=== PATIENT | male | born 1980 | race African-American/Black ===

== ENCOUNTER 2017-01-02 21:23 | Emergency (ER) | payer OTHER ==
[~2017-01-02] VITALS: Ht 198.1 cm; Wt 127.1 kg
[2017-01-02 21:31] VITALS: BP 134/77
--- NOTE | 2017-01-03 00:06 | NUR ---
BIB , HIGH BLOOD SUGAR AT HOME 401. , MORE FREQUENT URINATION, BLURRED VISION. BLOOD SUGAR IN TRIAGE IS 449 MED HX: ASTHMA/HTN/DIABETES/HIGH CHOLESTEROL MEDS TAKE AT HOME LISONOPRIL, PRAVASTATIN, GLIMAPRIDE, ALBUTEROL, FISH OIL SUPPLEMENT, VIT D
--- NOTE | 2017-01-03 00:06 | NUR ---
TO ER BED 8
[2017-01-03] MEDS ORDERED: NACL 0.9% 1,000 ML IV ONE (00:10)
--- NOTE | 2017-01-03 00:16 | NUR ---
Patient being evaluated by physician at bedside.
[2017-01-03] MEDS ORDERED: INSULIN HUMAN REGULAR 100 UNITS/ML 10 ML VIAL IVP ONE (01:05)
--- NOTE | 2017-01-03 01:40 | NUR ---
IV removed, catheter intact and site benign. Applied folded 4x4 gauze and tape to stop bleeding.
[2017-01-03 01:42] VITALS: BP 136/72
--- NOTE | 2017-01-03 01:42 | NUR ---
Patient discharged with v/s stable. Written and verbal after care instructions given and explained. Patient verbalized understanding. Ambulatory with steady gait. All questions addressed prior to discharge. Advised to follow up with PMD.
== END 2017-01-03 01:42 | disposition home or self-care (01) ==
LOC: MED 21:23
DX: E11.65 Type 2 diabetes mellitus with hyperglycemia (principal); I10 Essential (primary) hypertension; J45.909 Unspecified asthma, uncomplicated; E78.00 Pure hypercholesterolemia, unspecified; Z79.4 Long term (current) use of insulin
CPT/HCPCS: 36415; 80053; 82948; 85025; 85610; 85730; 96361; 96374; 99284; J1815; J7030

== ENCOUNTER 2017-01-06 18:37 | Emergency (ER) | payer OTHER ==
[~2017-01-06] VITALS: Ht 195.6 cm; Wt 124.3 kg
[2017-01-06 18:58] VITALS: BP 138/76
[2017-01-06 19:27] LABS: BASOPHILS # (AUTO) 0.1 K/uL (0.00-0.22); BASOPHILS % (AUTO) 1.2 % (0.0-2.0); EOSINOPHILS # (AUTO) 0.1 K/uL (0-0.4); EOSINOPHILS % (AUTO) 1.4 % (0.0-4.0); HEMATOCRIT 44.5 % (36-52); HEMOGLOBIN 14.9 g/dL (12.0-18.0); LYMPHOCYTES # (AUTO) 2.4 K/uL (2.0-11.5); LYMPHOCYTES % (AUTO) 24.3 % (20.5-51.1); MEAN CORPUSCULAR HEMOGLOBIN 27 pg (27-31); MEAN CORPUSCULAR HGB CONC 33 g/dL (33-37); MEAN CORPUSCULAR VOLUME 82 fL (80-94); MONOCYTES # (AUTO) 0.6 K/uL (0.8-1.0); MONOCYTES % (AUTO) 6.1 % (1.7-9.3); NEUTROPHILS # (AUTO) 6.7 K/uL (1.8-7.7); PLATELET COUNT (AUTO) 201 K/uL (140-450); RED BLOOD CELL COUNT(AUTO) 5.41 MIL/uL (4.20-6.10); RED CELL DISTRIBUTION WIDTH 11.8 % (11.6-13.7); WHITE BLOOD COUNT (AUTO) 9.9 K/uL (4.8-10.8)
[2017-01-06 19:42] LABS: ALBUMIN 3.9 g/dL (3.4-5.0); ANION GAP 11.5 (8-16); CALCIUM 9.4 mg/dL (8.5-10.1); CREATININE 1.3 mg/dL (0.6-1.3); POTASSIUM 4.5 mmol/L (3.5-5.1); TOTAL BILIRUBIN 0.9 mg/dL (0.0-1.0); TOTAL PROTEIN, SERUM 7.6 g/dL (6.4-8.2)
--- NOTE | 2017-01-06 20:27 | NUR ---
TO ER BED 3
[2017-01-06 20:29] LABS: BLOOD GAS BASE EXCESS 0.4 mmol/L (-2.0-2.0); BLOOD GAS HCO3 24.3 mmol/L; BLOOD GAS PCO2 36.8 mmHg (20-50); BLOOD GAS PH 7.437 (7.35-7.45); BLOOD GAS PO2 76.9 mmHg
[2017-01-06 20:30] LABS: BLOOD GAS O2 SAT% 95.3 % (92.0-98.5)
--- NOTE | 2017-01-06 20:30 | NUR ---
CAME IN WITH C/O HIGH BLOOD SUGAR , 395 MG/DL.
[2017-01-06] MEDS ORDERED: NACL 0.9% 1,000 ML IV ONE (20:40)
--- NOTE | 2017-01-06 20:40 | NUR ---
Patient being evaluated by physician at bedside.
[2017-01-06] MEDS ORDERED: INSULIN HUMAN REGULAR 100 UNITS/ML 10 ML VIAL IVP ONE (20:50)
--- NOTE | 2017-01-06 22:10 | NUR ---
ALL RESULTS BACK AND NOTED BY ERMD AND FOR D/C
[2017-01-06 22:14] VITALS: BP 120/70
--- NOTE | 2017-01-06 22:14 | NUR ---
Patient discharged with v/s stable. Written and verbal after care instructions given and explained. Patient alert, oriented and verbalized understanding of instructions. Ambulatory with steady gait. All questions addressed prior to discharge. ID band removed. Patient advised to follow up with PMD. Rx of GLIMEPIRIDE given. Patient educated on indication of medication including possible reaction and side effects. Opportunity to ask questions provided and answered.
== END 2017-01-06 22:14 | disposition home or self-care (01) ==
LOC: MED 18:38
DX: E11.65 Type 2 diabetes mellitus with hyperglycemia (principal); J45.909 Unspecified asthma, uncomplicated; I10 Essential (primary) hypertension
CPT/HCPCS: 36415; 36600; 80053; 81002; 82803; 82948; 85025; 96361; 96374; 99284; J1815; J7030